=== PATIENT | female | born 1955 | race Caucasian/White ===

== ENCOUNTER 2019-05-06 05:39 | Outpatient (CLI) | payer BC ==
[~2019-05-06] VITALS: Ht 167.6 cm; Wt 68.2 kg
[2019-05-06 06:21] LABS: BASOPHILS 0.6 % (0-2); EOSINOPHILS 4.2 % (0-7); HEMATOCRIT 38.1 % (36.0-48.0); HEMOGLOBIN 13.3 g/dL (12-16); LYMPHOCYTES 39.3 % (15-50); MCH 31.4 pg (26.0-34.0); MCHC 34.9 g/dL (31.0-37.0); MCV 89.9 fL (80.0-100.0); MEAN PLATELET VOLUME 11.8 fL (7.4-10.4); MONOCYTES 14.8 % (2-11); NEUTROPHILS 41.1 % (40-80); PLATELET COUNT 96 10x3/uL (130-400); RBC 4.24 10x6/uL (4.00-5.40); WBC 3.6 10x3/uL (4.8-10.8)
[2019-05-06 06:28] LABS: APTT 31.5 SECONDS (22.8-39.4); INR 1.2 (0.85-1.17); PROTIME 14.6 SECONDS (11.6-15.0)
[2019-05-06] MEDS ORDERED: CALCIUM/VIT D (06:33)
[2019-05-06] MEDS ORDERED: VITAMIN D31000 UNI2 PO ×2 (06:33→06:34)
[2019-05-06] MEDS ORDERED: VITAMIN E100 UNIT PO (06:35)
[2019-05-06 06:52] VITALS: BP 129/79; Ht 167.6 cm; Wt 68.2 kg
[2019-05-06 07:01] LABS: % SATURATION 40 % (15-55); IRON 127 ug/dl (35-150); TOTAL IRON BIND CAPACITY 316 ug/dl (260-445); UNSAT IRON BIND CAPACITY 189 ug/dl (150-375)
[2019-05-06 07:19] LABS: ALKALINE PHOSPHATASE 103 U/L (46-116); ALT (SGPT) 187 U/L (10-68); BILIRUBIN - DIRECT 0.32 mg/dL (0.00-0.30); BILIRUBIN - INDIRECT 0.45 mg/dL (0.00-1.00); BILIRUBIN - TOTAL 0.77 mg/dL (0.2-1.3); CALC OSMOLALITY 281 mosm/kg (275-300); CALCIUM 9.1 mg/dL (8.5-10.1); CARBON DIOXIDE 27.7 mmol/L (21.0-32.0); CHLORIDE - SERUM 106 mmol/L (98-107); CHOL - HDL RATIO 2.1 ratio (2.3-4.1); CHOLESTEROL, TOTAL 161 mg/dL (0-200); CREATININE - SERUM 0.7 mg/dL (0.6-1.3); FERRITIN 145 ng/mL (3-244); GAMMA GT 76 U/L (5-85); GLUCOSE 94 mg/dL (74-106); HDL CHOLESTEROL 76 mg/dL (32-96); LDL CHOLESTEROL 73 mg/dL (0-100); POTASSIUM - SERUM 3.5 mmol/L (3.5-5.1); PROTEIN - SERUM 8.1 g/dL (6.4-8.2); SODIUM 141 mmol/L (136-145); TRIGLYCERIDE 64 mg/dL (30-200); UREA NITROGEN 16 mg/dL (7-18); eGFR NON AFRICAN AMERICAN 89 mL/min (90-120)
--- NOTE | 2019-05-06 09:53 | NUR ---
0910 SEE POST PROCEDURE CHECKLIST FOR VITAL SIGN TRENDS
[2019-05-06 11:13] LABS: PLATELET ESTIMATE DECREASED
[2019-05-06 11:14] LABS: ROULEAUX OCC
[2019-05-07 07:14] LABS: HAPTOGLOBIN 23 mg/dL (34-200); HEPATITIS C ANTIBODY <0.1 S/CO RAT (0.0-0.9)
[2019-05-07 10:10] LABS: ANA REFLEX - ANTICHROMATIN ABS 0.4 AI (0.0-0.9); ANA REFLEX - CENTROMERE B ABS <0.2 AI (0.0-0.9); ANA REFLEX - DBL STRANDED DNA 89 IU/mL (0-9); ANA REFLEX - DIRECT Positive (Negative); ANA REFLEX - JO-1 AB <0.2 AI (0.0-0.9); ANA REFLEX - RNP ANTIBODIES 0.2 AI (0.0-0.9); ANA REFLEX - SCL-70 <0.2 AI (0.0-0.9); ANA REFLEX - SJOGRENS AB SSA >8.0 AI (0.0-0.9); ANA REFLEX - SJOGRENS AB SSB <0.2 AI (0.0-0.9); ANA REFLEX - SMITH AB <0.2 AI (0.0-0.9)
[2019-05-07 15:10] LABS: ALPHA FETOPROTEIN -(TUMOR MRK) 16.8 ng/mL (0.0-8.3)
[2019-05-08 11:10] LABS: MITOCHONDRIAL ANTIBODY <20.0 Units (0.0-20.0)
== END 2019-05-06 13:05 | disposition home or self-care (01) ==
LOC: D.CT 05:39
PROVIDERS: Specialist; ATTEND Internal Medicine Gastroenterology
DX: R93.2 Abnormal findings on diagnostic imaging of liver and biliary tract (principal); R94.5 Abnormal results of liver function studies